=== PATIENT | female | born 2000 | race Caucasian/White ===

== ENCOUNTER 2019-11-23 14:02 | Emergency (ER) | payer OTHER, SELFPAY ==
--- NOTE | ~2019-11-23 | XR_ITS ---
EXAMINATION: XR lumbar spine 2-3V DATE: 11/23/2019 15:04 INDICATION: Low back pain TECHNIQUE: Anteroposterior and lateral views of the lumbar spine, and cone-down lateral view of the l umbosacral junction were obtained. COMPARISON: None. FINDINGS: There are 11 degrees of thoracolumbar levoscoliosis. There is no fracture, dislocation, or subluxation. The vertebral body heights, alignment, and intervertebral disc spaces are normal. The james wel gas pattern is normal. IMPRESSION: 1. No acute osseous abnormality. Reviewed, dictated and finalized at location A. R TRUCKER
[2019-11-23 14:13] VITALS: BP 129/76; PULSE 76; RESP 18; TEMP 36.7; O2SAT 100
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
== END 2019-11-23 15:45 | disposition home or self-care (01) ==
PROVIDERS: Emergency Provider Nurse Practitioner; PCP Physician Assistant
DX: M54.5 Low back pain (principal); M41.9 Scoliosis, unspecified; E06.3 Autoimmune thyroiditis
CPT/HCPCS: 72100; 99213; G0463

== ENCOUNTER 2022-01-08 15:01 | Outpatient (CLI) | payer OTHER, SELFPAY ==
[2022-01-08 16:41] LABS: Free T4 Free Thyroxine 1.32 ng/mL (0.78-2.19)
== END 2022-01-08 15:02 | disposition home or self-care (01) ==
LOC: ANHWCLAB 15:04
PROVIDERS: PCP Physician Assistant; Referring Provider Internal Medicine Endocrinology, Diabetes & Metabolism; Visit Provider Internal Medicine Endocrinology, Diabetes & Metabolism
DX: E03.8 Other specified hypothyroidism (principal); E06.3 Autoimmune thyroiditis
CPT/HCPCS: 36415; 84439; 84443

== ENCOUNTER 2022-03-19 13:43 | Outpatient (CLI) | payer OTHER, SELFPAY ==
[2022-03-19 16:37] LABS: Free T4 Free Thyroxine 0.91 ng/mL (0.78-2.19)
== END 2022-03-19 13:44 | disposition home or self-care (01) ==
LOC: ANHWCLAB 13:45
PROVIDERS: PCP Physician Assistant; Visit Provider Internal Medicine Endocrinology, Diabetes & Metabolism
DX: E03.9 Hypothyroidism, unspecified (principal)
CPT/HCPCS: 36415; 84439; 84443

== ENCOUNTER 2022-12-10 13:06 | Outpatient (CLI) | payer OTHER, SELFPAY ==
--- NOTE | ~2022-12-10 | US_ITS ---
EXAMINATION: US thyroid DATE: 12/10/2022 13:42 INDICATION: Hypothyroidism. Urmila thyroiditis. TECHNIQUE: Multiple ultrasound images of the thyroid were obtained. COMPARISON: None. FINDINGS: The right thyroid lobe measures 4.4 x 1.7 x 1.7 cm. The left thyroid lobe measures 4.3 x 1.4 x 1.5 c m. The thyroid is diffusely heterogeneous and hypoechoic with increased vascularity. No discrete nod ule. IMPRESSION: 1. Heterogeneous, hypervascular thyroid, consistent with chronic lymphocytic (Urmila) thyroiditis. Reviewed, dictated and finalized at location A. R CHECKER IMPRESSION: 1. Heterogeneous, hypervascular thyroid, consistent with chronic lymphocytic (H ashimoto) thyroiditis.
== END 2022-12-10 13:07 | disposition home or self-care (01) ==
PROVIDERS: PCP Family Medicine; Visit Provider Internal Medicine Endocrinology, Diabetes & Metabolism
DX: E03.9 Hypothyroidism, unspecified (principal); R94.6 Abnormal results of thyroid function studies
CPT/HCPCS: 76536

== ENCOUNTER 2022-12-28 15:53 | Outpatient (CLI) | payer OTHER, SELFPAY ==
[2022-12-28 17:43] LABS: Free T4 Free Thyroxine 1.55 ng/mL (0.78-2.19)
== END 2022-12-28 15:54 | disposition home or self-care (01) ==
LOC: ANHWCLAB 15:54
PROVIDERS: PCP Family Medicine; Visit Provider Internal Medicine Endocrinology, Diabetes & Metabolism
DX: E03.9 Hypothyroidism, unspecified (principal)
CPT/HCPCS: 36415; 84439; 84443